=== PATIENT | male | born 1980 | race Two or more races ===

== ENCOUNTER → 2016-10-30 | Outpatient (CLI) | payer OTHER | END | disposition home or self-care (01) | LOC: HKI 10:38 | PROVIDERS: ATTEND Orthopaedic Surgery | DX: S83.231D Complex tear of medial meniscus, current injury, right knee, subsequent encounter (principal); S83.411D Sprain of medial collateral ligament of right knee, subsequent encounter; M25.561 Pain in right knee | CPT/HCPCS: G0463 ==